=== PATIENT | female | born 1930 | race Caucasian/White ===

== ENCOUNTER 2019-03-20 17:08 | Emergency (ER) | payer OTHER, BC ==
[2019-03-20 17:33] VITALS: BP 188/72; PULSE 70; TEMP 97.3; BMI 21.1
--- NOTE | 2019-03-20 18:12 | PDOC ---
History of Present Illness - General History Source: Patient, Parent(s) <LeeleeJac - Last Filed: 03/20/19 19:52> <Ben Harrison - Last Filed: 03/20/19 20:57> <Chilagno Cunningham - Last Filed: 03/24/19 08:02> - General Chief Complaint: Injury Stated Complaint: FALL/ LT SHOULDER PAIN Time Seen by Provider: 03/20/19 17:38 Past History - Past Medical History Anemia: No Asthma: No Cancer: No Cardiac Disorders: Yes (pacemaker 2002) CVA: No COPD: No CHF: No Dementia: No Diabetes: No GI Disorders: No Disorders: No HTN: Yes Hypercholesterolemia: Yes Liver Disease: No Seizures: No Thyroid Disease: Yes (over active) Other medical history: PARKINSON - Surgical History Abdominal Surgery: No Appendectomy: Yes Cardiac Surgery: Yes (pacemaker) Cholecystectomy: No Neurologic Surgery: No Orthopedic Surgery: No - Immunization History Immunization Up to Date: No - Psycho Social/Smoking Cessation Hx Smoking Status: No Smoking History: Never smoked Have you smoked in the past 12 months: No Number of Cigarettes Smoked Daily: 0 Information on smoking cessation initiated: No Hx Alcohol Use: No Drug/Substance Use Hx: No Substance Use Type: None <Jac Mckoy - Last Filed: 03/20/19 19:52> <Ben Harrison - Last Filed: 03/20/19 20:57> <Chilango Cunningham - Last Filed: 03/24/19 08:02> - Past Medical History Allergies/Adverse Reactions: Allergies Allergy/AdvReac Type Severity Reaction Status Date / Time No Known Drug Allergies Allergy Verified 03/20/19 17:27 Home Medications: Ambulatory Orders Atorvastatin Ca [Lipitor] 10 mg PO HS 06/03/15 Calcium Carbonate/Vitamin D3 [Calcium 600-Vit D3 200 Tablet] 1 each PO DAILY 09/12 Carbidopa/Levodopa [Carbidopa-Levo 25-100 mg Odt] 1 each PO TID 06/03/15 FA/Mv,Ca,Iron,Min/Lycopene/Lut [Centrum Tablet] 1 each PO DAILY 06/03/15 Hydrochlorothiazide [Hctz -] 12.5 mg PO DAILY 06/03/15 Lisinopril [Prinivil] 20 mg PO DAILY 06/03/15 Metoprolol Succinate [Toprol XL -] 25 mg PO DAILY 06/03/15 Docusate Sodium [Colace -] 100 mg PO BID PRN #0 capsule 06/13/15 Heparin - 5,000 unit SQ BID vial 06/13/15 Polyethylene Glycol 3350 [Miralax 119 gm Btl -] 17 gm PO BID bottle 06/13/15 Sennosides [Senna -] 2 tab PO HS PRN #0 tablet 06/13/15 oxyCODONE HCL [Roxicodone -] 5 mg PO Q4H PRN #0 tablet MDD 4 06/13/15 Acetaminophen [Tylenol -] 1,000 mg PO Q6H #30 tablet 03/20/19 *Physical Exam - Vital Signs Last Vital Signs Temp Pulse Resp BP Pulse Ox 97.3 F L 70 16 188/72 H 98 03/20/19 17:27 03/20/19 17:27 03/20/19 17:27 03/20/19 17:27 03/20/19 17:27 - Physical Exam General Appearance: Yes: Appropriately Dressed. No: Apparent Distress HEENT: positive: Normal Voice Neck: negative: Tender Respiratory/Chest: positive: Lungs Clear, Normal Breath Sounds. negative: Respiratory Distress Cardiovascular: positive: Regular Rate, S1, S2 Gastrointestinal/Abdominal: positive: Soft. 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, Alert, Normal Mood/Affect, Motor Strength 5/5 <Jac Mckoy - Last Filed: 03/20/19 19:52> - Vital Signs Last Vital Signs Temp Pulse Resp BP Pulse Ox 97.3 F L 70 16 188/72 H 98 03/20/19 17:27 03/20/19 17:27 03/20/19 17:27 03/20/19 17:27 03/20/19 17:27 <Ben Harrison - Last Filed: 03/20/19 20:57> - Vital Signs Last Vital Signs Temp Pulse Resp BP Pulse Ox 97.3 F L 70 16 188/72 H 98 03/20/19 17:27 03/20/19 17:27 03/20/19 17:27 03/20/19 17:27 03/20/19 17:27 <Chilango Cunningham - Last Filed: 03/24/19 08:02> ED Treatment Course - RADIOLOGY Radiology Studies Ordered: Category Date Time Status HEAD CT WITHOUT CONTRAST [CT] Stat CT Scan 03/20/19 17:44 Ordered SHOULDER-LEFT [RAD] Stat Radiology 03/20/19 17:46 Ordered <Jac Mckoy - Last Filed: 03/20/19 19:52> ED Progress Note - Progress Note Progress Note: 03/20/19 20:57 CT reviewed patient can safely go home and follow-up with orthopedics. <Ben Harrison - Last Filed: 03/20/19 20:57> Medical Decision Making - Medical Decision Making 03/20/19 18:06 89-year-old female, history of Parkinson's, PPM, not on any blood thinners, s/p multiple orthopedic surgeries, brought in by family for fall today. Patient states she ambulates with Rollator at baseline but was not using her Rollator walker today at home when she tripped and fell on carpet. Fell mostly onto her L shoulder per pt and c/o pain to site. States she did not hit her head and no LOC, GARZA, dizziness, n/v, neck, back or hip pain. Not on blood thinners and no change in baseline MS per family. Pt able to ambulate since fall. Denies chest pain or dizziness prior to fall. Patient states fall was not witnessed and was found down on ground by home administrator only several minutes after fall See exam R/o L shoulder fx s/p unwitnessed mechanical fall per hx Denies head injury and not on blood thinners No LOC, GARZA, dizziness, n/v MS baseline per family No CP/dizziness prior to fall No neck, back, hip pain and able to ambulate since fall Pt appearing in no apparent distress with ecchymosis and swelling near L AC joint, rest of exam unremarkable Declines pain meds Sling given -XR -CT 03/20/19 19:57 X-ray with distal clavicular fracture with superior displacement of proximal aspect concerning for a type II clavicular fracture. Case discussed with [facility], who states pt can follow-up with Dr. Morejon tomorrow morning. At this point head CT read still pending and patient signed out to FRANCISCO Harrison <Jac Mckoy - Last Filed: 03/20/19 19:52> - Medical Decision Making 03/24/19 08:02 I reviewed the case of the mid-level practitioner and was available for consultation while in the emergency department <Chilango Cunningham - Last Filed: 03/24/19 08:02> Discharge - Discharge Information Problems reviewed: Yes <Jac Mckoy - Last Filed: 03/20/19 19:52> <Ben Harrison - Last Filed: 03/20/19 20:57> <Chilango Cunningham - Last Filed: 03/24/19 08:02> - Discharge Information Clinical Impression/Diagnosis: Clavicle fracture Qualifiers: Encounter type: initial encounter Clavicle location: lateral end Fracture type : closed Fracture alignment: nondisplaced Laterality: left Qualified Code(s): S42.035A - Nondisplaced fracture of lateral end of left clavicle, initial encounter for closed fracture Fall Qualifiers: Encounter type: initial encounter Qualified Code(s): W19.XXXA - Unspecified fall, initial encounter Condition: Good Disposition: HOME - Additional Discharge Information Prescriptions: Acetaminophen [Tylenol -] 1,000 mg PO Q6H #30 tablet - Follow up/Referral Referrals: Marcos Morejon MD [Staff Physician] - - Patient Discharge Instructions Patient Printed Discharge Instructions: Clavicle Fracture Additional Instructions: You sustained a clavicular fracture and should follow up with Dr. Morejon of [facility] tomorrow morning Take Tylenol as needed for pain
== END 2019-03-20 20:58 | disposition home or self-care (01) ==
LOC: JERFT 17:08
DX: S42.035A Nondisplaced fracture of lateral end of left clavicle, initial encounter for closed fracture (principal); W18.09XA Striking against other object with subsequent fall, initial encounter; Y93.89 Activity, other specified; Y92.018 Other place in single-family (private) house as the place of occurrence of the external cause; Y99.8 Other external cause status; I10 Essential (primary) hypertension; E78.00 Pure hypercholesterolemia, unspecified; G20 Parkinson's disease; E05.90 Thyrotoxicosis, unspecified without thyrotoxic crisis or storm; Z95.0 Presence of cardiac pacemaker; Z99.89 Dependence on other enabling machines and devices
CPT/HCPCS: 70450-TC; 73030-TC-LT-FY; 99282-25